=== PATIENT | female | born 1950 | race Asian ===

== ENCOUNTER → 2017-07-20 | Outpatient (CLI) | payer OTHER ==
--- NOTE | 2017-07-20 10:46 | RAD ---
2-D mammogram Indication: Routine screening. History of left breast biopsy with benign results longtime ago. Technique: 2-D mammogram of the bilateral breasts. Comparison: None Findings: Breast density category B: There are scattered areas of fibroglandular density. The skin and nipples are within normal limits. There are no suspicious calcifications, spiculated masses or areas of architectural distortion. Impression: No mammographic evidence of malignancy. BI-RADS 1: Negative. Continued annual screening. PQRS compliance statement: Patient information was entered into a reminder system with a target due date 07/20/2018 for the next mammogram. Mammography is a sensitive method for finding small breast cancers, but it does not detect them all and is not a substitute for careful clinical examination. A negative mammogram does not negate a clinically suspicious finding and should not result in delay in biopsying a clinically suspicious abnormality. "Our facility is accredited by the [employer] Mammography Program."
== END | disposition home or self-care (01) ==
LOC: MAMMO 08:37
PROVIDERS: ATTEND Nurse Practitioner Adult Health
DX: Z12.31 Encounter for screening mammogram for malignant neoplasm of breast (principal)
CPT/HCPCS: G0202; 77067

== ENCOUNTER 2019-08-19 15:34 | Observation (INO) | payer OTHER, MEDICAID ==
[~2019-08-19] VITALS: Ht 149.9 cm; Wt 62.2 kg
[2019-08-19] MEDS ORDERED: HEPARIN for IV BOLUS 10,000 UNIT/10 ML VIAL. IV PRN ×2 (15:45)
[2019-08-19] MEDS ORDERED: ACETAMINOPHEN 325 MG TABLET PO PRN (15:45)
[2019-08-19] MEDS ORDERED: ONDANSETRON PF 4 MG/2 ML VIAL. IV PRN (15:45)
[2019-08-19] MEDS ORDERED: HEPARIN for IV BOLUS 10,000 UNIT/10 ML VIAL. IV ONE (16:00)
[2019-08-19 16:15] VITALS: BP 144/85
[2019-08-19 16:30] LABS: BASO # 0.1 x10^3/uL (0.0-0.2); BASO % 1 % (0-3); EOS # 0.3 x10^3/uL (0.0-0.7); EOS % 4 % (0-3); HEMOGLOBIN 11.8 g/dL (12.0-15.5); LYMPH # 1.8 x10^3/uL (1.0-4.8); LYMPH % 25 % (24-48); MEAN CORPUSCULAR HEMOGLOBIN 29 pg (25-35); MEAN CORPUSCULAR HGB CONC 32 g/dL (31-37); MEAN CORPUSCULAR VOLUME 90 fL (79-100); MONO # 0.9 x10^3/uL (0.0-1.1); MONO % 12 % (0-9); NEUT % 58 % (31-73); PLATELET COUNT 241 x10^3/uL (140-400); RED BLOOD COUNT 4.11 x10^6/uL (3.50-5.40); RED CELL DISTRIBUTION WIDTH 13.8 % (11.5-14.5)
[2019-08-19] MEDS: HEPARIN 25,000UTS/500ML PREMIX 500 ML IV PRN (16:39)
[2019-08-19 17:19] LABS: ALBUMIN 3.4 g/dL (3.4-5.0); ALBUMIN/GLOBULIN RATIO 0.8 (1.0-1.7); CALCIUM 10.5 mg/dL (8.5-10.1); CREATININE 0.5 mg/dL (0.6-1.0); GFR 123.1; MAGNESIUM 1.8 mg/dL (1.8-2.4); POTASSIUM 4.1 mmol/L (3.5-5.1); TOTAL BILIRUBIN 0.5 mg/dL (0.2-1.0); TOTAL PROTEIN 7.8 g/dL (6.4-8.2)
[2019-08-19] MEDS ORDERED: ZAFI20TA11 PO (17:33)
[2019-08-19] MEDS ORDERED: LEVO75TA PO (17:33)
[2019-08-19] MEDS ORDERED: LATA2.5D3 EACHEYE (17:33)
[2019-08-19] MEDS ORDERED: APIX5TAB3 PO (17:33)
[2019-08-19] MEDS ORDERED: CHOL200059 PO (17:33)
--- NOTE | 2019-08-19 18:25 | NUR ---
PT direct admit from office. PT had OP CT chest today. PT had doppler of lump on leg a few days ago and dopplers of both legs will be done in AM. PT has been taking Eliquis per Sharron DOS SANTOS order. She has taken 3 doses until today on admit. Pt is not on heparin gtt per protocol. Pt feels fine and has no SOB at this time. Will continue to monitor. [place] QUIROZ
[2019-08-19 19:03] VITALS: BP 127/79
[2019-08-19 20:03] VITALS: BP 129/72
[2019-08-19] MEDS: LATANOPROST 0.005% OPHTH SOLUTION 2.5ML BOTTLE. OU SCH (20:49)
[2019-08-19 21:03] VITALS: BP 130/72
[2019-08-19 22:04] VITALS: BP 116/68
[2019-08-19 23:00] VITALS: BP 103/53
[2019-08-20] VITALS (13 sets, daily range): BP systolic 91–135; BP diastolic 51–83
[2019-08-20 04:58] LABS: BASO # 0.1 x10^3/uL (0.0-0.2); BASO % 1 % (0-3); EOS # 0.4 x10^3/uL (0.0-0.7); EOS % 6 % (0-3); HEMATOCRIT 35.7 % (36.0-47.0); HEMOGLOBIN 11.5 g/dL (12.0-15.5); LYMPH # 2.1 x10^3/uL (1.0-4.8); LYMPH % 32 % (24-48); MEAN CORPUSCULAR HEMOGLOBIN 29 pg (25-35); MEAN CORPUSCULAR HGB CONC 32 g/dL (31-37); MEAN CORPUSCULAR VOLUME 89 fL (79-100); MONO # 0.8 x10^3/uL (0.0-1.1); MONO % 11 % (0-9); NEUT # 3.4 x10^3uL (1.8-7.7); NEUT % 50 % (31-73); PLATELET COUNT 206 x10^3/uL (140-400); RED CELL DISTRIBUTION WIDTH 13.6 % (11.5-14.5); WHITE BLOOD COUNT 6.8 x10^3/uL (4.0-11.0)
[2019-08-20 05:13] LABS: CALCIUM 10.1 mg/dL (8.5-10.1); CREATININE 0.5 mg/dL (0.6-1.0); GFR 123.1; POTASSIUM 4.1 mmol/L (3.5-5.1)
[2019-08-20] MEDS: LEVOTHYROXINE 75 MCG TABLET PO SCH (06:12)
--- NOTE | 2019-08-20 08:08 | RAD ---
Bilateral lower extremity venous duplex Doppler ultrasound HISTORY: Bilateral leg pain. FINDINGS: Right leg is negative for DVT with compressibility, patent color Doppler blood flow and augmentation of blood flow the right common femoral vein, profunda femoral vein, superficial femoral vein and popliteal vein. No DVT evident with patent color Doppler blood flow the right posterior tibial and peroneal veins in the calf. Left leg demonstrates occlusive noncompressible thrombus which is contiguous with moderate nonocclusive DVT of the left common femoral vein with some areas of patent blood flow through the thrombus, extension of thrombus to the distal left external iliac vein outside the [id number] at the pelvis cannot be excluded. No DVT of the profunda femoral vein, superficial femoral vein, popliteal vein or of the posterior tibial and peroneal veins in the calf. IMPRESSION: DVT of the left common femoral vein with adjacent thrombosis of the greater saphenous vein as described above. FOR INTERNAL CODING PURPOSES Critical result: Findings discussed with the patient's MANPOWER DEVELOPMENT SPECIALIST Melody at 08/20/2019 8:05 AM. Read back of report was performed. The nurse is calling the treating physician with these results. RESULT CODE: (C) Electronically signed by: Rober Cuba MD (08/20/2019 8:06 AM) [facility]
[2019-08-20] MEDS: CHOLECALCIFEROL (VITAMIN D3) 1,000 UNIT TABLET PO SCH (08:12)
[2019-08-20] MEDS ORDERED: FLU VAX QS 2019-20 (36MOS+)/PF 0.5 ML SYRINGE. VAX IM ONE (09:00)
[2019-08-20] MEDS ORDERED: MONTELUKAST 10 MG TABLET. PO SCH (09:00)
[2019-08-20] MEDS ORDERED: ACETAMINOPHEN 500 MG TABLET PO PRN (10:30)
[2019-08-20] MEDS ORDERED: ZOLPIDEM 5 MG TABLET. PO PRN (10:30)
[2019-08-20] MEDS ORDERED: MAALOX:LIDO:APAP 6:2:1 ORAL SUSPENSION 180 ML BOTTLE. PO PRN (14:45)
[2019-08-20 15:59] LABS: BILIRUBIN,URINE NEG (NEG); CLARITY,URINE CLEAR; COLOR,URINE YELLOW; GLUCOSE,URINE NEG (NEG)
[2019-08-20 16:00] LABS: BACTERIA,URINE FEW /HPF (0-FEW); NITRITE,URINE NEG (NEG); RBC,URINE OCC /HPF (0-2); SQUAMOUS EPITHELIAL CELL,UR FEW /LPF; UROBILINOGEN,URINE 0.2 mg/dL (0.2 mg/dL); WBC,URINE OCC /HPF (0-4)
[2019-08-20] MEDS: HEPARIN 25,000UTS/500ML PREMIX 500 ML IV PRN (16:00)
[2019-08-20] MEDS: LATANOPROST 0.005% OPHTH SOLUTION 2.5ML BOTTLE. OU SCH (21:28)
--- NOTE | 2019-08-20 23:56 | PN ---
DATE: 08/20/2019 SUBJECTIVE: Patient is a 68-year-old female at about 8:51 came in with increased shortness of breath. The patient was noted to have problems with her situation with her breathing. D-dimers were positive. A CTA demonstrated a problem with bilateral pulmonary emboli. She also had pain in her thigh. The patient was admitted to the hospital for IV heparinization and started on oral anticoagulants of everything else performed was well. She had a DVT of the left common femoral vein was noted and bilateral pulmonary emboli. This was done as an outpatient at another facility. In any case, the patient is making good progress so far. OBJECTIVE: VITAL SIGNS: Blood pressure 90/73, respiratory rate 16, pulse 78, afebrile. GENERAL: The patient is alert and oriented. LUNGS: Diminished, but clear. CARDIOVASCULAR: Regular sinus rhythm, S1, S2. ABDOMEN: Soft, nontender, no rebound or guarding. Positive bowel sounds, no hepatosplenomegaly was noted. EXTREMITIES: No clubbing, cyanosis or edema. NEUROLOGIC: Intact. IMPRESSION: Therefore, bilateral pulmonary emboli with a large left deep venous thrombosis of her left thigh. PLAN: Continue to monitor the patient accordingly, make further evaluation on her per those results and we will switch her over to oral anticoagulation in the morning. CEE STALEY MD DR: FELECIA/landry JOB#: [id number] / [id number]
[2019-08-21] MEDS: LEVOTHYROXINE 75 MCG TABLET PO SCH (05:20)
[2019-08-21 05:28] VITALS: BP 131/59
[2019-08-21 06:45] LABS: BASO # 0.1 x10^3/uL (0.0-0.2); BASO % 1 % (0-3); EOS # 0.3 x10^3/uL (0.0-0.7); EOS % 5 % (0-3); HEMATOCRIT 35.5 % (36.0-47.0); HEMOGLOBIN 11.6 g/dL (12.0-15.5); LYMPH # 1.9 x10^3/uL (1.0-4.8); LYMPH % 29 % (24-48); MEAN CORPUSCULAR HEMOGLOBIN 29 pg (25-35); MEAN CORPUSCULAR HGB CONC 33 g/dL (31-37); MEAN CORPUSCULAR VOLUME 90 fL (79-100); MONO # 0.8 x10^3/uL (0.0-1.1); MONO % 13 % (0-9); NEUT # 3.5 x10^3uL (1.8-7.7); NEUT % 53 % (31-73); PLATELET COUNT 227 x10^3/uL (140-400); RED BLOOD COUNT 3.96 x10^6/uL (3.50-5.40); RED CELL DISTRIBUTION WIDTH 13.7 % (11.5-14.5); WHITE BLOOD COUNT 6.6 x10^3/uL (4.0-11.0)
[2019-08-21 06:59] LABS: ALBUMIN/GLOBULIN RATIO 0.7 (1.0-1.7); CALCIUM 9.9 mg/dL (8.5-10.1); CREATININE 0.5 mg/dL (0.6-1.0); GFR 123.1; POTASSIUM 4.1 mmol/L (3.5-5.1); TOTAL BILIRUBIN 0.4 mg/dL (0.2-1.0); TOTAL PROTEIN 7.3 g/dL (6.4-8.2)
[2019-08-21] MEDS: APIXABAN 5 MG TABLET. PO SCH ×2 (09:37→20:57)
[2019-08-21] MEDS: CHOLECALCIFEROL (VITAMIN D3) 1,000 UNIT TABLET PO SCH (09:37)
[2019-08-21 09:38] VITALS: BP 110/52
--- NOTE | 2019-08-21 11:22 | NUR ---
Dr Pate here to see patient to discharge home, patient requests to stay one more day. States that she is feeling much better but would like to stay for one more day for reassurance. Patient taken off of heparin gtt at 0730, eliquis started at 0930. Patient tolerating medication well and per phsycian was given coupons in office.
[2019-08-21 14:12] VITALS: BP 128/69
[2019-08-21 18:15] VITALS: BP 124/71
[2019-08-21 19:38] VITALS: BP 124/56
[2019-08-21] MEDS: LATANOPROST 0.005% OPHTH SOLUTION 2.5ML BOTTLE. OU SCH (20:57)
[2019-08-22 05:51] VITALS: BP 131/63
[2019-08-22] MEDS: LEVOTHYROXINE 75 MCG TABLET PO SCH (05:57)
[2019-08-22] MEDS: CHOLECALCIFEROL (VITAMIN D3) 1,000 UNIT TABLET PO SCH (08:39)
[2019-08-22] MEDS: APIXABAN 5 MG TABLET. PO SCH (08:39)
[2019-08-22] MEDS ORDERED: FLU VAX QS 2019-20 (36MOS+)/PF 0.5 ML SYRINGE. VAX IM ONE (09:00)
[2019-08-22] MEDS ORDERED: APIX5TAB3 PO (09:00)
--- NOTE | 2019-08-22 09:29 | NUR ---
pt discharged from hospital. information provided to pt, iv'd d/c'd, pt verbalized understanding, pt off the unit ambulatory accompanied by .
--- NOTE | 2019-08-22 15:11 | PN ---
DATE: SUBJECTIVE: A 68-year-old female in with bilateral pulmonary emboli and a large clot in her left leg. The patient is still receiving IV heparin. OBJECTIVE: VITAL SIGNS: Blood pressure 124/70, respiratory rate 18, pulse 70, afebrile. GENERAL: The patient is alert and oriented. LUNGS: Diminished, but clear. CARDIOVASCULAR: Some dyspnea. IMPRESSION: Bilateral pulmonary emboli with deep venous thrombosis in the left leg. PLAN: The patient to be monitored carefully; switched over to Eliquis and continued to be monitored. CEE STALEY MD DR: FELECIA/landry JOB#: [id number] / [id number]
[2019-08-28] MEDS ORDERED: APIXABAN 5 MG TABLET. PO SCH (09:00)
== END 2019-08-22 10:58 | disposition home or self-care (01) ==
LOC: INTOOBSV 15:34 → ICU 15:34
PROVIDERS: ADMIT Family Medicine; ATTEND Family Medicine
DX: I26.99 Other pulmonary embolism without acute cor pulmonale (principal); I82.412 Acute embolism and thrombosis of left femoral vein; D33.4 Benign neoplasm of spinal cord; Z79.01 Long term (current) use of anticoagulants; Z23 Encounter for immunization
CPT/HCPCS: 36415; 76881; 80048; 80053; 80061; 81001; 83735; 85025; 85610; 85730; 90471; 90686; 93005; 93970; 96365; 96366; 96376; G0378; G0379; J1644